=== PATIENT | male | born 1935 | race Caucasian/White ===

== ENCOUNTER → 2017-09-10 | Outpatient (CLI) | payer MEDICARE ==
[~2017-09-10] MED LIST: ASPI-1441 PO; DABI150C3 PO; DOCU-416 PO; ENO40I SQ; ESOM20CA2 PO; FES4PT PO; IBU200 PO; LORA-802 PO; NITR-105 PO; PER PO; RIVA20TA PO; WAR5 PO
[2017-09-10 16:35] LABS: PLATELET COUNT, AUTOMATED 160 K/uL (150-450)
== END ==
LOC: LAB 16:10
PROVIDERS: ATTEND Internal Medicine Hematology
DX: D69.6 Thrombocytopenia, unspecified (principal)
CPT/HCPCS: 36415; 85025

== ENCOUNTER 2017-09-15 12:53 | Outpatient (RCR) | payer MEDICARE ==
[~2017-09-15] VITALS: Ht 175.3 cm; Wt 88.3 kg
[2017-09-15 13:00] VITALS: BP 119/70
--- NOTE | 2017-09-15 18:56 | ONCOLOGY FOLLOW UP NOTE ---
EVENT DATE: September 15, 2017 DIAGNOSES 1. 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 2. Abnormal CT scan of the neck with soft tissue density of the anterior vallecula adjacent to the basal duct triangle on the left. 3. Atrial fibrillation. CHIEF COMPLAINT The patient is here today for followup of his thrombocytopenia. HEMATOLOGY HISTORY Mr. Alec Palomino is a 82-year-old male who had a history of prostate cancer treated with brachytherapy with seed implants in 1998 and, as per patient, for the last five years he knew he had low platelets, which is getting worse gradually year after year. He is also having atrial fibrillation on Pradaxa. The patient has been followed by Dr. Moser, and his blood count done recently , October 17, 2014, revealed normal white count of 6.1, normal hemoglobin of 15.1, hematocrit normal at 45.3%, platelet count 61,000. In September, his platelet count was 43,000. In 2012, his platelet count was 57,000 in July; but, in September 2012, it was 82,000 and in June 2011 it was 105,000. The patient denies any bleeding, but he has excessive bruising. CT scan of the soft tissue of the neck done on October 31, 2014 did reveal abnormal soft tissue density material seen in the anterior vallecula, immediately adjacent to the basal duct triangle on the left. There was hypodense left thyroid nodule noted, the largest 1.4 cm. B12, folate levels, and methylmalonic acid assay, red cell folate, all came within the normal range. Platelet-associated antibodies, direct IgM, are strongly positive. HISTORY OF PRESENT ILLNESS Patient is here today for followup of his thrombocytopenia. He is doing fine currently. He is complaining of some sinus problems and dry cough, but other than that he is really doing very well. PAST MEDICAL HISTORY 1. Prostate cancer status post brachytherapy in 1998. 2. Atrial fibrillation. PAST SURGICAL HISTORY 1. Prostate biopsy in 1998. 2. Tonsillectomy as a child. FAMILY HISTORY Negative for cancer or blood diseases. SOCIAL HISTORY The patient is . 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 He never smoked tobacco, but chewed tobacco for fifty years and quit ten years ago. Denies any abuse of illicit drugs. CURRENT MEDICATIONS 1. Xarelto 20 mg daily. 2. Nexium 20 mg once daily. 3. Claritin 10 mg once daily. ALLERGIES No known drug allergies. REVIEW OF SYSTEMS CONSTITUTIONAL: No appetite or weight change. No fever, chills or sweating. No recent infection. HEENT: Ears: No tinnitus or hearing problem. Nose: He has some sinus troubles. Throat: No sore throat or mouth ulcers. Eyes: No diplopia or visual changes. RESPIRATORY: He has cough which is dry. CARDIOVASCULAR: No chest pain, orthopnea, or paroxysmal nocturnal dyspnea (PND) . No edema. No palpitations. GASTROINTESTINAL: No nausea or vomiting. No diarrhea or constipation. No change in bowel movements. No heartburn or swallowing difficulties. No abdominal pain. No jaundice. No hematemesis, melena or rectal bleeding. GENITOURINARY: The patient has hemorrhoids which are better with treatment. MUSCULOSKELETAL: He has pain in the right shoulder, improved with local injection. NEUROLOGICAL: No tingling or numbness in the hands or feet. No headaches or convulsions. HEMATOLOGIC/LYMPHATIC: He bruises easily. SKIN: No skin rash or lumps. PSYCHIATRIC: No anxiety or depression. PHYSICAL EXAMINATION GENERAL: Looks stable. Well-developed, well-nourished, and in no acute distress. VITAL SIGNS: Blood pressure 119/70, pulse 54 per minute, respirations 16 per minute, temperature 96.7, pulse ox 92% on room air. HEENT: Head: Atraumatic. No sinus tenderness to palpation. Eyes: No icterus or conjunctivitis. Mouth and throat: No oral thrush or mucositis. NECK: Supple. No cervical or supraclavicular lymphadenopathy. LUNGS: Clear to auscultation and percussion bilaterally. HEART: Regular rate and rhythm. No gallops, murmurs, clicks or rubs. ABDOMEN: Soft and lax. No tenderness. No hepatosplenomegaly. No masses. EXTREMITIES: No cyanosis, clubbing or edema. LYMPHATICS: No peripheral lymphadenopathy. NEUROLOGICAL: Conscious, alert and oriented times three. No focal motor or sensory deficits. PSYCHIATRIC: Mood and affect appear normal. SKIN: No skin rash, bruise or purpuric eruption. DIAGNOSTIC DATA CBC shows a white count of 5.7, hemoglobin 15.8, hematocrit 45.9, platelet count 160,000. ASSESSMENT 1. 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 Patient has a strongly positive platelet associated antibody IgM direct. Platelet count in the past ranged between 40,000 to 60,000, but his current platelet count today is 160,000. He is currently on Xarelto 20 mg daily and he is doing fine with that. I am planning to continue followup. I will see him again in six months with CBC. . 2. Atrial fibrillation on Xarelto 20 mg daily. PLAN 1. Continue followup. 2. Patient to return in six months with CBC. 3. Patient to contact us for any new concerns or complaints. ELISABETH
== END 2017-09-19 07:42 | disposition home or self-care (01) ==
LOC: ONC 12:53
PROVIDERS: ATTEND Internal Medicine Hematology
DX: D69.6 Thrombocytopenia, unspecified (principal); I48.91 Unspecified atrial fibrillation; Z79.01 Long term (current) use of anticoagulants; R05 Cough; Z87.891 Personal history of nicotine dependence
CPT/HCPCS: 99212

== ENCOUNTER → 2017-12-15 | Outpatient (CLI) | payer MEDICARE ==
--- NOTE | 2017-12-15 15:37 | RADIOLOGY IMAGING REPORT ---
FACILITY: [facility] [place]IENT NAME: Alec Palomino : 1935 MR: [id number] V: [id number] EXAM DATE: ORDERING PHYSICIAN: FORTUNATO MERCADO TECHNOLOGIST: Location: [facility] - [place] Patient: Alec Palomino : 1935 Visit/Account:[id number] Date of Sevice: 12/15/2017 KNEE 3 VIEW RIGHT History: Right knee pain with swelling. Comparison study: None. Findings: There are findings of diffuse joint space narrowing throughout the right knee with subchon dral sclerosis and bony proliferation. The findings are most prominent in the patellofemoral joint s pace compartment where there is severe loss of joint space. There are calcified loose bodies in the joint space and in particular in the suprapatellar recess. There is a moderate size joint effusion. IMPRESSION: 1. 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 2. Moderate-sized joint effusion with calcified loose bodies in the joint space. The largest calcif ied loose bodies or in the suprapatellar recess. Report Dictated By: Trey Britt MD at 12/15/2017 3:32 PM Report E-Signed By: Trey Britt MD at 12/15/2017 3:33 PM WSN:[id number]
== END ==
LOC: RAD 14:54
PROVIDERS: ATTEND Family Medicine
DX: M17.11 Unilateral primary osteoarthritis, right knee (principal); M25.461 Effusion, right knee

== ENCOUNTER → 2018-01-10 | Outpatient (CLI) | payer MEDICARE ==
--- NOTE | 2018-01-10 16:25 | EKG ---
FACILITY: [facility] - [place] PATIENT NAME: ZAINAB NUR : [id number] MR: [id number] V: [id number] EXAM DATE: ORDERING PHYSICIAN: SALLY HAHN TECHNOLOGIST: KELVIN Bhatti Reason : PRE-OP Blood Pressure : / mmHG Vent. Rate : 057 BPM Atrial Rate : 057 BPM P-R Int : 236 ms QRS Dur : 084 ms QT Int : 382 ms P-R-T Axes : 033 073 060 degrees QTc Int : 371 ms Sinus bradycardia with 1st degree AV block with premature atrial complexes Otherwise normal ECG When compared with ECG of 04-JAN-2014 12:38, No significant change was found Confirmed by SALLY MARIE ([id number]) on 01/10/2018 8:46:11 PM Referred By: JOVANI Confirmed By:SALLY MARIE
== END ==
LOC: RESP 14:42
PROVIDERS: ATTEND Anesthesiology
DX: Z01.810 Encounter for preprocedural cardiovascular examination (principal); S83.206A Unspecified tear of unspecified meniscus, current injury, right knee, initial encounter
CPT/HCPCS: 93005

== ENCOUNTER → 2018-01-10 | Outpatient (REF) | payer MEDICARE | LOC: ZZSENDIN 17:12 | PROVIDERS: ATTEND Urology | DX: N39.0 Urinary tract infection, site not specified (principal) | CPT/HCPCS: 87088 ==

== ENCOUNTER 2018-03-30 11:21 | Outpatient (RCR) | payer MEDICARE ==
[2018-03-30 11:48] LABS: PLATELET COUNT, AUTOMATED 199 K/uL (150-450)
[2018-03-30 12:21] VITALS: BP 129/82
--- NOTE | 2018-03-30 18:11 | ONCOLOGY FOLLOW UP NOTE ---
EVENT DATE: March 30, 2018 DIAGNOSES 1. 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 2. Abnormal CT scan of the neck with soft tissue density of the anterior vallecula adjacent to the basal duct triangle on the left. 3. Atrial fibrillation. CHIEF COMPLAINT The patient is here today for followup of his thrombocytopenia. HEMATOLOGY HISTORY Mr. Alec Palomino is a 82-year-old male who had a history of prostate cancer treated with brachytherapy with seed implants in 1998 and, as per patient, for the last five years he knew he had low platelets, which is getting worse gradually year after year. He is also having atrial fibrillation on Pradaxa. The patient has been followed by Dr. Moser, and his blood count done recently , October 17, 2014, revealed normal white count of 6.1, normal hemoglobin of 15.1, hematocrit normal at 45.3%, platelet count 61,000. In September, his platelet count was 43,000. In 2012, his platelet count was 57,000 in July; but, in September 2012, it was 82,000 and in June 2011 it was 105,000. The patient denies any bleeding, but he has excessive bruising. CT scan of the soft tissue of the neck done on October 31, 2014 did reveal abnormal soft tissue density material seen in the anterior vallecula, immediately adjacent to the basal duct triangle on the left. There was hypodense left thyroid nodule noted, the largest 1.4 cm. B12, folate levels, and methylmalonic acid assay, red cell folate, all came within the normal range. Platelet-associated antibodies, direct IgM, are strongly positive. HISTORY OF PRESENT ILLNESS Patient is here today for followup of his thrombocytopenia. He has some chills sometimes. He has also constipation. He has pain in his right knee, and he has recently right arthroscopic surgery. . PAST MEDICAL HISTORY 1. Prostate cancer status post brachytherapy in 1998. 2. Atrial fibrillation. PAST SURGICAL HISTORY 1. Prostate biopsy in 1998. 2. Tonsillectomy as a child. FAMILY HISTORY Negative for cancer or blood diseases. SOCIAL HISTORY The patient is . 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 He never smoked tobacco, but chewed tobacco for fifty years and quit ten years ago. Denies any abuse of illicit drugs. CURRENT MEDICATIONS 1. Xarelto 20 mg daily. 2. Nexium 20 mg once daily. 3. Claritin 10 mg once daily. ALLERGIES No known drug allergies. REVIEW OF SYSTEMS CONSTITUTIONAL: No appetite or weight change. No fever or sweating. The patient has chills. No recent infection. HEENT: Ears: No tinnitus or hearing problem. Nose: He has some sinus troubles. Throat: No sore throat or mouth ulcers. Eyes: No diplopia or visual changes. RESPIRATORY: He has cough which is dry. CARDIOVASCULAR: No chest pain, orthopnea, or paroxysmal nocturnal dyspnea (PND) . No edema. No palpitations. GASTROINTESTINAL: No nausea or vomiting. No diarrhea. He has constipation. No change in bowel movements. No heartburn or swallowing difficulties. No abdominal pain. No jaundice. No hematemesis, melena or rectal bleeding. GENITOURINARY: The patient has hemorrhoids which are better with treatment. MUSCULOSKELETAL: He has pain in the right knee. NEUROLOGICAL: No tingling or numbness in the hands or feet. No headaches or convulsions. HEMATOLOGIC/LYMPHATIC: He bruises easily. SKIN: No skin rash or lumps. PSYCHIATRIC: No anxiety or depression. PHYSICAL EXAMINATION GENERAL: Looks stable. Well-developed, well-nourished, and in no acute distress. VITAL SIGNS: Blood pressure 129/82, pulse 84 per minute, respirations 16 per minute, temperature 98.2, pulse ox 93% on room air. HEENT: Head: Atraumatic. No sinus tenderness to palpation. Eyes: No icterus or conjunctivitis. Mouth and throat: No oral thrush or mucositis. NECK: Supple. No cervical or supraclavicular lymphadenopathy. LUNGS: Clear to auscultation and percussion bilaterally. HEART: Regular rate and rhythm. No gallops, murmurs, clicks or rubs. ABDOMEN: Soft and lax. No tenderness. No hepatosplenomegaly. No masses. EXTREMITIES: No cyanosis, clubbing or edema. LYMPHATICS: No peripheral lymphadenopathy. NEUROLOGICAL: Conscious, alert and oriented times three. No focal motor or sensory deficits. PSYCHIATRIC: Mood and affect appear normal. SKIN: No skin rash, bruise or purpuric eruption. DIAGNOSTIC DATA CBC shows a white count of 5.2, hemoglobin 14.6, hematocrit 41.3, platelet count 199,000. ASSESSMENT 1. 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 Patient had strongly positive platelet-associated antibody IgM direct. Platelet count in the past ranged between 40,000 to 60,000, but his current platelet count is 199,000 and it is stable. It was 160,000 with his last visit. Patient has currently a normal CBC and he is using Xarelto and he is doing fine with that. I am planning to refer the patient back to his primary care provider, Dr. Moser, and I would be more than happy to see him in the future if he would develop any hematological abnormality. . 2. Atrial fibrillation on Xarelto. PLAN 1. Patient to continue followup with Dr. Moser. 2 Patient to contact us for any new concerns or complaints. ELISABETH
== END 2018-05-05 10:29 | disposition home or self-care (01) ==
LOC: SPU 11:21
PROVIDERS: ATTEND Internal Medicine Hematology
DX: D69.6 Thrombocytopenia, unspecified (principal); I48.91 Unspecified atrial fibrillation; Z85.46 Personal history of malignant neoplasm of prostate; M25.561 Pain in right knee; K59.00 Constipation, unspecified; Z87.891 Personal history of nicotine dependence
CPT/HCPCS: 36415; 85025; G0463; 99212

== ENCOUNTER 2018-11-02 01:20 | Day surgery (SDC) | payer MEDICARE ==
[~2018-11-02] VITALS: Ht 175.3 cm; Wt 82.1 kg
[2018-11-02] VITALS (7 sets, daily range): BP systolic 87–118; BP diastolic 60–98
[~2018-11-02 01:20] MED LIST changes: +OMEP-125 PO; +SOLI10TA8 PO
[2018-11-02] MEDS ORDERED: PROPOFOL EMUL(*) 10MG/ML 20 ML 40 ML ONE (08:24)
[2018-11-02] MEDS ORDERED: LIDOCAINE MPF 1% 5 ML VIAL ONE (08:24)
[2018-11-02] MEDS ORDERED: LIDOCAINE/SOD BICARB 8.4% SYR ID ONE (09:05)
[2018-11-02] MEDS ORDERED: NORMOSOL R SOLN(*) 1000 ML BAG 1,000 ML IV PRN (09:05)
--- NOTE | 2018-11-02 12:08 | NUR ---
1017 PT ARRIVED TO LA VIS CART, SAFETY MAINTAINED LEFT LAT POSITION, RESTING, RESPONDED TO STERNAL RUB BY DR. GOTTLIEB, LOW BP, FLUIDS WIDE OPEN 1022 BP REPEATED, ACCEPTABLE 1045 FAMILY AT BEDSIDE, UPDATED BY DR. SHARMA, PT ROLLED TO SUPINE POSITION, DOWN TO 2L MASK 1050 FAMILY AT BEDSIDE 1100SF POSITION, VSS, TOLERATING PUDDING, CHEESE, AND WATER 1134 ORTHOSTATICS STABLE, DENIES DIZZINESS, UPT O RESTROOM, ALLOWED TO DRESS 1140 DC INSTRUCTIONS COVERED WITH , ALL QUESTIONS ANSWERED 1150 IV OUT, REASSESSED, IRREGULAR HEART BEAT AND WHEEZES NOTED, WALKED OUT TO CARE OUTSIDE ER ENTRANCE ALONG WITH AND DAUGHTER. DECLINED WC, BUT REQUESTED TO HOLD HANDS ON WAY OUT. 1201 PLACED IN CAR OUTSIDE ER, SELF TRANSFERRED WITHOUT INCIDENT, ALL BELONGINGS WITH PT.
== END 2018-11-02 12:01 | disposition home or self-care (01) ==
LOC: OR 01:20
PROVIDERS: ATTEND Family Medicine
DX: Z12.11 Encounter for screening for malignant neoplasm of colon (principal); Z86.010 Personal history of colon polyps
CPT/HCPCS: 00812; G0121; J2001; J2704